=== PATIENT | female | born 1955 | race Native Hawaiian/Other Pacific Islander ===

== ENCOUNTER 2021-08-01 09:55 | Outpatient (CLI) | payer OTHER ==
[2021-08-01 10:31] LABS: PLATELET COUNT 208 K/uL (152-353)
[2021-08-01 10:35] LABS: POTASSIUM 4.7 mmol/L (3.6-5.2)
== END 2021-08-01 19:12 | disposition home or self-care (01) ==
LOC: RAD 09:55 → LABW 09:55
PROVIDERS: ATTEND Nurse Practitioner Family
DX: Z20.822 Contact with and (suspected) exposure to COVID-19 (principal); R73.09 Other abnormal glucose
CPT/HCPCS: 36415; 80053; 83036; 85027; 85379

== ENCOUNTER 2021-08-02 15:13 | Observation (INO) | payer OTHER ==
[~2021-08-02] VITALS: Ht 172.7 cm; Wt 97.6 kg
[2021-08-02 16:09] VITALS: BP 186/98; TEMP 97.7; Ht 172.7 cm; Wt 97.6 kg
[2021-08-02 16:14] LABS: PLATELET COUNT 232 K/uL (152-353)
[2021-08-02 16:49] LABS: POTASSIUM 4.3 mmol/L (3.6-5.2)
[2021-08-02 20:00] VITALS: BP 171/75; TEMP 98.5
[2021-08-03] VITALS: BP 134/65; TEMP 97.6
[2021-08-03 04:00] VITALS: BP 146/74; TEMP 98.1
[2021-08-03 08:00] VITALS: BP 169/73; TEMP 98.4
[2021-08-03] MEDS ORDERED: LANTUS100 UNIT/M SC (08:20)
[2021-08-03] MEDS ORDERED: SIMV40TA57 PO (08:27)
[2021-08-03] MEDS ORDERED: METF500T PO (08:28)
[2021-08-03] MEDS ORDERED: LISINOPRIL PO (08:28)
[2021-08-03] MEDS ORDERED: METOPROLOL25 M1 PO (08:29)
[2021-08-03] MEDS ORDERED: GLIM4TAB PO (08:30)
[2021-08-03 12:00] VITALS: BP 183/86; TEMP 98.2
[2021-08-03] MEDS ORDERED: ZITHROMAX500 MG PO (14:33)
[2021-08-03] MEDS ORDERED: TRAMADOL HYDROC50 MG PO (14:34)
[2021-08-03] MEDS ORDERED: PEPCID40 MG PO (14:36)
[2021-08-03] MEDS ORDERED: MEDROL DOSEPAK4 MG PO (14:38)
[2021-08-03 14:49] LABS: PLATELET COUNT 231 K/uL (152-353)
[2021-08-03 15:02] LABS: POTASSIUM 3.8 mmol/L (3.6-5.2)
[2021-08-03 16:00] VITALS: BP 160/90; TEMP 98
[2021-08-03 20:00] VITALS: BP 162/75; TEMP 98.9
[2021-08-04] VITALS: BP 104/44; TEMP 98.4
[2021-08-04 04:00] VITALS: BP 143/58; TEMP 99.7
[2021-08-04 08:23] LABS: PLATELET COUNT 216 K/uL (152-353)
[2021-08-04 08:49] LABS: POTASSIUM 3.9 mmol/L (3.6-5.2)
== END 2021-08-04 19:50 | disposition home or self-care (01) ==
LOC: MED/SURG 15:13
PROVIDERS: ADMIT Family Medicine; ATTEND Family Medicine
DX: U07.1 COVID-19 (principal); J44.1 Chronic obstructive pulmonary disease with (acute) exacerbation; E11.9 Type 2 diabetes mellitus without complications; I10 Essential (primary) hypertension; R51.9 Headache, unspecified; G89.29 Other chronic pain; F41.8 Other specified anxiety disorders; J12.82 Pneumonia due to coronavirus disease 2019; R05.1 Acute cough; R06.00 Dyspnea, unspecified
CPT/HCPCS: 80053; 82728; 82948; 83735; 84100; 85027; 85379; 86140; 87040; 93005; 94667; 94668; 94760; 96365; 96366; 96367; 96372; 96375; 99220; G0378; G0379; J0248; J0456; J1650; J1815

== ENCOUNTER 2021-11-14 08:58 | Outpatient (CLI) | payer OTHER ==
[~2021-11-14 08:58] MED LIST: GLIM4TAB PO; LANTUS100 UNIT/M SC; LISINOPRIL PO; MEDROL DOSEPAK4 MG PO; METF500T PO; METOPROLOL25 M1 PO; PEPCID40 MG PO; SIMV40TA57 PO; TRAMADOL HYDROC50 MG PO; ZITHROMAX500 MG PO
== END 2021-11-14 19:40 | disposition home or self-care (01) ==
LOC: MRI 08:58
PROVIDERS: ATTEND Physical Medicine & Rehabilitation Pain Medicine
DX: M96.1 Postlaminectomy syndrome, not elsewhere classified (principal)
CPT/HCPCS: 36415; 82565; 84520; A9576

== ENCOUNTER 2021-11-21 13:29 | Outpatient (CLI) | payer OTHER ==
[2021-11-21 14:21] LABS: POTASSIUM 4.4 mmol/L (3.6-5.2)
== END 2021-11-21 19:45 | disposition home or self-care (01) ==
LOC: LABW 13:29
PROVIDERS: ATTEND Nurse Practitioner Family
DX: R60.0 Localized edema (principal)
CPT/HCPCS: 36415; 80053; 82550; 83605; 83880; 84484; 85379; 85652; 86140